=== PATIENT | female | born 1935 | race Caucasian/White ===

== ENCOUNTER 2017-02-14 13:39 | Emergency (ER) | payer MEDICARE, MEDICAID ==
[2017-02-14 13:46] VITALS: BP 154/71
[2017-02-14 14:36] LABS: Urine Bacteria 1+ (Absent); Urine Bilirubin Negative (Negative); Urine Glucose Negative (Negative); Urine Nitrite Negative (Negative)
[2017-02-14] MEDS ORDERED: Sulfamethox/Trimethoprim DS 800/160* TAB PO ONE (14:43)
[2017-02-14] MEDS ORDERED: Phenazopyridine TAB* 100 MG PO ONE (14:44)
--- NOTE | 2017-02-14 15:37 | ED ---
GI/ HPI - HPI Summary HPI Summary: Patient presents to the ED with urgency, frequency, burning upon urination. Dark colored, cloudy urine. Denies flank pain. Denies diaphoresis and chills. Denies known fever. No abnormal vaginal discharge reported. Otherwise healthy. Denies other pain or symptoms. Takes no medications. Last UTI over 2 years ago. PMHX non-contributory. Denies allergies. - History of Current Complaint Chief Complaint: EDUrogenitalProblems Time Seen by Provider: 02/14/17 13:46 Stated Complaint: UTI Hx Obtained From: Patient Onset/Duration: Started Hours Ago Timing: Constant Severity: Moderate Pain Intensity: 0 Associated Signs and Symptoms: Positive: UTI Symptoms - Additional Pertinent History Primary Care Physician: SHARA - Allergy/Home Medications Allergies/Adverse Reactions: Allergies Allergy/AdvReac Type Severity Reaction Status Date / Time Docusate [From Colace] Allergy Itching Verified 02/14/17 14:10 PMH/Surg Hx/FS Hx/Imm Hx Previously Healthy: Yes Endocrine/Hematology History: Denies: Hx Anticoagulant Therapy, Hx Diabetes, Other Endocrine/Hematological Disorders Cardiovascular History: Reports: Other Cardiovascular Problems/Disorders - hx tachycardia Denies: Hx Angina, Hx Coronary Artery Disease, Hx Hypercholesterolemia, Hx Hypertension - H/O TACHYCARDIA- NOT FOR SEVERAL YEARS, Hx Myocardial Infarction , Hx Pacemaker/ICD, Hx Valvular Heart Disease Respiratory History: Denies: Hx Asthma, Hx Chronic Obstructive Pulmonary Disease (COPD), Other Respiratory Problems/Disorders GI History: Denies: Other GI Disorders History: Denies: Hx Renal Disease, Other Problems/Disorders Musculoskeletal History: Reports: Hx Arthritis - arms, knees, Hx Orthopedic Injury - PELVIS & LEFT FOOT FRACTURE Denies: Other Musculoskeletal History Sensory History: Reports: Hx Cataracts, Hx Contacts or Glasses, Hx Vision Problem, Hx Hearing Problem Denies: Hx Hearing Aid, Other Sensory Impairments Opthamlomology History: Reports: Hx Cataracts, Hx Contacts or Glasses, Hx Vision Problem Denies: Other Sensory Impairments Neurological History: Reports: Hx Migraine, Other Neuro Impairments/Disorders - HEADACHES, DEPRESSION Psychiatric History: Reports: Hx Depression - REMOTE HISTORY Denies: Hx Panic Disorder, Other Psychiatric Issues/Disorders - Cancer History Cancer Type, 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 Oophorectomy 1962;. Hysterectomy IN [place];. Appendectomy IN [place];. Veins stripping 1972;. Rt CHEEK - CARCINOMA REMOVED. CATARACT Hx Anesthesia Reactions: No - Immunization History Date of Tetanus Vaccine: unsure Date of Influenza Vaccine: 2012 Hx Pertussis Vaccination: No Immunizations Up to Date: Unable to Obtain/Confirm Infectious Disease History: No Infectious Disease History: Denies: Hx Shingles, Hx Tuberculosis, Traveled Outside the [place] in Last 30 Days - Family History Known Family History: Positive: Cardiac Disease - Social History Occupation: Retired Lives: With Family Alcohol Use: None Hx Substance Use: No Substance Use Type: Reports: None Hx Tobacco Use: No Smoking Status (MU): Never Smoked Tobacco Review of Systems Constitutional: Negative Negative: Fever, Chills, Fatigue Eyes: Negative Cardiovascular: Negative Respiratory: Negative Positive: burning, dysuria, frequency, pain, urgency Musculoskeletal: Negative Skin: Negative Neurological: Negative All Other Systems Reviewed And Are Negative: Yes Physical Exam Triage Information Reviewed: Yes Vital Signs On Initial Exam: Initial Vitals Temp Pulse Resp BP Pulse Ox 98.0 F 71 15 154/71 99 02/14/17 13:40 02/14/17 13:40 02/14/17 13:40 02/14/17 13:40 02/14/17 13:40 Vital Signs Reviewed: Yes Appearance: Positive: Well-Appearing, Well-Nourished Skin: Positive: Warm, Skin Color Reflects Adequate Perfusion Head/Face: Positive: Normal Head/Face Inspection Eyes: Positive: Normal, EOMI Neck: Positive: Supple, Nontender, No Lymphadenopathy Respiratory/Lung Sounds: Positive: Clear to Auscultation, Breath Sounds Present Cardiovascular: Positive: Normal, RRR, Pulses are Symmetrical in both Upper and Lower Extremities Musculoskeletal: Positive: Strength/ROM Intact Neurological: Positive: Disoriented, Speech Normal AVPU Assessment: Alert - [place] Coma Scale Coma Scale Total: 15 Diagnostics - Vital Signs Vital Signs Temp Pulse Resp BP Pulse Ox 02/14/17 15:04 69 16 02/14/17 13:40 98.0 F 71 15 154/71 99 - Laboratory Lab Results: Lab Results 02/14/17 Range/Units 14:06 Urine Color Yellow Urine Appearance Cloudy Urine pH 7.0 (5-9) Ur Specific [place] 1.005 L (1.010-1.030) Urine Protein Negative (Negative) Urine Ketones Negative (Negative) Urine Blood 2+ H (Negative) Urine Nitrate Negative (Negative) Urine Bilirubin Negative (Negative) Urine Urobilinogen Negative (Negative) Ur Leukocyte Esterase 3+ H (Negative) Urine WBC (Auto) 3+(>20/hpf) H (Absent) Urine RBC (Auto) Trace(0-2/hpf) (Absent) Ur Squamous Epith Cells Present H (Absent) Urine Bacteria 1+ H (Absent) Urine Glucose Negative (Negative) Lab Statement: Any lab studies that have been ordered have been reviewed, and results considered in the medical decision making process. GIGU Course/Dx - Course Course Of Treatment: UA performed. WBC and leuks seen. Patient experiencing urgency, frequency and pain on urination. Dark urine noted. No abnormal vaginal discharge or bleeding. No CVA tenderness bilaterally. No previous UTI within last 6 months and no recent Augmentin use. Will treat for uncomplicated UTI and await sensitivities of urine culture. Will call if abx not sensitive to medication. Pyridium given for comfort. Return precautions and follow up with PCP. Given 1 dose bactrim in the ED. 9 tabs rx. - Diagnoses Differential Diagnoses - Female: Urinary Tract Infection, Ureteral Calculi Provider Diagnoses: UTI (urinary tract infection) Discharge - Discharge Plan Condition: Stable Disposition: HOME Prescriptions: Phenazopyridine TAB* [Pyridium 100 mg TAB*] 100 mg PO TID #12 tab Sulfamethox/Trimethoprim DS* [Bactrim DS 800/160 TAB*] 1 tab PO BID #9 tab MDD 2 Patient Education Materials: Urinary Tract Infection in Women (ED) Referrals: Warner Lyon MD [Primary Care Provider] - Additional Instructions: Dx. Urinary Tract Infection Drink plenty of fluids. Supplement with cranberry or altamirano juice. You may also take an over the counter cranberry supplement. If you have any questions about this, you may ask your pharmacist. If your symptoms have not improved in 1-2 days, if you develop fever, sweats or chills, please go to your emergency room, or call your PCP. Antibiotics were prescribed to you. Please take as directed. Supplement with over the counter probiotics on the opposite schedule of your antibiotic to prevent secondary infections. Do not take together as they may counteract each other. Pyridium: This medication is used to treat pain, burning, increased urination, and increased urge to urinate. These symptoms are usually caused by infection, injury, surgery, catheter, or other conditions that irritate the lower urinary tract. Pyridium will treat the symptoms of a urinary tract infection, but this medication does not treat the actual infection. Take the antibiotic that your doctor prescribes to treat your infection. Pyridium will most likely darken the color of your urine to an orange or red color. This is a normal effect and is not cause for alarm unless you have other symptoms such as pale or yellowed skin, fever, stomach pain, nausea, and vomiting. Darkened urine may also cause stains to your underwear, which may or may not be removed by laundering. It can also permanently stain soft contact lenses, and you should not wear them while taking this medicine.
--- NOTE | 2017-02-16 09:00 | PN ---
Progress Note - Progress Note Date of Service: 02/14/17 Note: patient diagnosed and treated for UTI. preliminary urine culture results show >100,000 of e. coli. placed on bactrim at d/c. should have appropriate coverage. no further action required at this time. will wait for final sensitivity results.
== END 2017-02-14 15:06 | disposition home or self-care (01) ==
LOC: ED 13:39
DX: N39.0 Urinary tract infection, site not specified (principal); R30.0 Dysuria
CPT/HCPCS: 81003; 81015; 87077; 87086; 87186; 99282; A9270-GY

== ENCOUNTER 2018-10-28 11:24 | Emergency (ER) | payer MEDICARE, MEDICAID ==
[2018-10-28] MEDS ORDERED: Acetaminophen TAB* 325 MG PO ONE (11:35)
--- NOTE | 2018-10-28 11:35 | ED ---
Upper Extremity Pain - HPI Summary HPI Summary: Patient is an 83-year-old female who presents to the ED with right shoulder pain after a fall this morning. Fall was mechanical. Patient states she was walking on the sidewalk when she tripped, falling onto her right shoulder and right humerus. She is endorsing pain over the right shoulder, slight pain over the right humerus without pain to the forearm, wrist or hand. She denies any swelling, ecchymosis or other signs of trauma. She has not attempted to move about the shoulder due to pain. She has not taken any medication prior to arrival and is requesting Tylenol on arrival. She has never injured the right shoulder in the past. Denies hitting her head or LOC. Denies any other symptoms at this time. Pain is currently rated a 5/10, only with movement and better with rest. - History of Current Complaint Stated Complaint: R SHOULDER INJURY/FALL PER EMS Time Seen by Provider: 10/28/18 11:27 Hx Obtained From: Patient Onset/Duration: Started Hours Ago Timing: Constant Severity Initially: Moderate Severity Currently: Moderate Pain Location: Shoulder Character: Aching Aggravating Factor(s): Movement, Lifting, Flexion Alleviating Factor(s): Rest, Ice Associated Signs & Symptoms: Negative: Swelling, Redness, Bruising Related History: Dominant Hand Right - Risk Factors Non-Orthopedic Risk Factor: Negative DVT Risk Factors: Negative Septic Arthritis Risk Factor: Negative Compartment Syndrome Risk Factors: Pain - Allergies/Home Medications Allergies/Adverse Reactions: Allergies Allergy/AdvReac Type Severity Reaction Status Date / Time No Known Allergies Allergy Verified 10/28/18 11:41 PMH/Surg Hx/FS Hx/Imm Hx Previously Healthy: Yes Endocrine/Hematology History: Denies: Hx Anticoagulant Therapy, Hx Diabetes, Other Endocrine/Hematological Disorders Cardiovascular History: Reports: Other Cardiovascular Problems/Disorders - hx tachycardia Denies: Hx Angina, Hx Coronary Artery Disease, Hx Hypercholesterolemia, Hx Hypertension - H/O TACHYCARDIA- NOT FOR SEVERAL YEARS, Hx Myocardial Infarction , Hx Pacemaker/ICD, Hx Valvular Heart Disease Respiratory History: Denies: Hx Asthma, Hx Chronic Obstructive Pulmonary Disease (COPD), Other Respiratory Problems/Disorders GI History: Denies: Other GI Disorders History: Denies: Hx Renal Disease, Other Problems/Disorders Musculoskeletal History: Reports: Hx Arthritis - arms, knees, Hx Orthopedic Injury - PELVIS & LEFT FOOT FRACTURE Denies: Other Musculoskeletal History Sensory History: Reports: Hx Cataracts, Hx Contacts or Glasses, Hx Vision Problem Denies: Other Sensory Impairments Opthamlomology History: Reports: Hx Cataracts, Hx Contacts or Glasses, Hx Vision Problem Denies: Other Sensory Impairments Neurological History: Reports: Hx Migraine, Other Neuro Impairments/Disorders - HEADACHES, DEPRESSION Psychiatric History: Reports: Hx Depression - REMOTE HISTORY Denies: Hx Panic Disorder, Other Psychiatric Issues/Disorders - Cancer History Cancer Type, 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 Oophorectomy 1962;. Hysterectomy IN [facility];. [place] ;. Veins stripping 1972;. Rt CHEEK - CARCINOMA REMOVED. CATARACT Hx Anesthesia Reactions: No - Immunization History Date of Tetanus Vaccine: unsure Date of Influenza Vaccine: 2012 Hx Pertussis Vaccination: No Immunizations Up to Date: Yes Infectious Disease History: Denies: Hx Shingles, Hx Tuberculosis - Family History Known Family History: Positive: Cardiac Disease - Social History Occupation: Unemployed Lives: With Family Alcohol Use: None Hx Substance Use: No Substance Use Type: Reports: None Hx Tobacco Use: No Smoking Status (MU): Never Smoked Tobacco Review of Systems Constitutional: Negative Negative: Fever, Chills, Fatigue, Skin Diaphoresis Negative: Palpitations, Chest Pain Negative: Shortness Of Breath, Cough Genitourinary: Negative Positive: no symptoms reported, see HPI Positive: Arthralgia - right shoulder Skin: Negative Neurological: Negative All Other Systems Reviewed And Are Negative: Yes Physical Exam Triage Information Reviewed: Yes Vital Signs Reviewed: Yes Appearance: Positive: Well-Appearing, Well-Nourished Skin: Positive: Warm, Skin Color Reflects Adequate Perfusion Head/Face: Positive: Normal Head/Face Inspection Eyes: Positive: EOMI, Conjunctiva Clear Neck: Positive: Supple, No Lymphadenopathy Respiratory/Lung Sounds: Positive: Clear to Auscultation, Breath Sounds Present Cardiovascular: Positive: RRR, Pulses are Symmetrical in both Upper and Lower Extremities Musculoskeletal: Positive: Pain @ - right shoulder pain Neurological: Positive: Speech Normal Psychiatric: Positive: Normal, Affect/Mood Appropriate AVPU Assessment: Alert Course/Dx - Course Course Of Treatment: During the course of treatment, the patient is evaluated for right shoulder pain following a fall. She denies any other pain other than the shoulder. Pain is radiating down from the shoulder into the forearm and hand. She is unable to flex and extend, unable to abduct or abduct at the shoulder joint. She denies any other pain or symptoms from the fall. Denies hitting her head or LOC. X-ray obtained which shows a humeral neck fracture. She is given a sling. Given tramadol as prescription. Encouraged Tylenol and ibuprofen. She will follow-up with orthopedics. - Diagnoses Differential Diagnosis/HQI/PQRI: Positive: Fracture (Open), Fracture (Closed), Strain, Sprain Provider Diagnoses: Right shoulder pain Discharge - Sign-Out/Discharge Documenting (check all that apply): Patient Departure Patient Received Moderate/Deep Sedation with Procedure: No - Discharge Plan Condition: Stable Disposition: HOME Prescriptions: traMADol TAB* [Ultram*] 50 mg PO Q8H PRN #12 tab MDD 3 PRN Reason: Pain Patient Education Materials: Arm Fracture in Adults (ED) Referrals: Warner Lyon MD [Primary Care Provider] - Arlene Butt MD [Medical Doctor] - Additional Instructions: Please follow up with Dr. Butt Call to make an appt this afternoon for next week Keep the arm in the sling for comfort Tylenol 650mg three times daily as needed - Billing Disposition and Condition Condition: STABLE Disposition: Home
[2018-10-28 13:51] VITALS: BP 146/71
== END 2018-10-29 01:40 | disposition home or self-care (01) ==
LOC: ED 11:24
DX: S42.211A Unspecified displaced fracture of surgical neck of right humerus, initial encounter for closed fracture (principal); W01.0XXA Fall on same level from slipping, tripping and stumbling without subsequent striking against object, initial encounter; Y92.480 Sidewalk as the place of occurrence of the external cause
CPT/HCPCS: 71045; 99282; A9270-GY

== ENCOUNTER 2018-10-28 23:34 | Emergency (ER) | payer MEDICARE, MEDICAID ==
--- NOTE | 2018-10-29 00:24 | ED ---
Upper Extremity Pain - HPI Summary HPI Summary: 83 yo female presents to [facility] ED via EMS with complaints of shivering and right shoulder pain. [facility] found to have a right humerus fracture. She was placed in a sling and given tramadol for discomfort and discharged. Since that time, her pain has been under control, but she states she cannot get comfortable in bed and feels that she is shaking and "teeth chattering". She thought her fingers were going numb with the sling in the usual position, therefore she loosened it so her arm is in about 25deg of flexion at the elbow - good relief with this. She denies new injury, headache , dizziness, SOB, chest pain, fever. She last took tramadol and tylenol at 2130 - History of Current Complaint Chief Complaint: EDExtremityUpper Stated Complaint: SHAKING/ARM PAIN PER EMS Time Seen by Provider: 10/28/18 23:56 Hx Obtained From: Patient Severity Initially: Moderate Severity Currently: Moderate Pain Location: Arm - Allergies/Home Medications Allergies/Adverse Reactions: Allergies Allergy/AdvReac Type Severity Reaction Status Date / Time No Known Allergies Allergy Verified 10/28/18 11:41 PMH/Surg Hx/FS Hx/Imm Hx Endocrine/Hematology History: Denies: Hx Anticoagulant Therapy, Hx Diabetes, Other Endocrine/Hematological Disorders Cardiovascular History: Reports: Other Cardiovascular Problems/Disorders - hx tachycardia Denies: Hx Angina, Hx Coronary Artery Disease, Hx Hypercholesterolemia, Hx Hypertension - H/O TACHYCARDIA- NOT FOR SEVERAL YEARS, Hx Myocardial Infarction , Hx Pacemaker/ICD, Hx Valvular Heart Disease Respiratory History: Denies: Hx Asthma, Hx Chronic Obstructive Pulmonary Disease (COPD), Other Respiratory Problems/Disorders GI History: Denies: Other GI Disorders History: Denies: Hx Renal Disease, Other Problems/Disorders Musculoskeletal History: Reports: Hx Arthritis - arms, knees, Hx Orthopedic Injury - PELVIS & LEFT FOOT FRACTURE Denies: Other Musculoskeletal History Sensory History: Reports: Hx Cataracts, Hx Contacts or Glasses, Hx Vision Problem Denies: Other Sensory Impairments Opthamlomology History: Reports: Hx Cataracts, Hx Contacts or Glasses, Hx Vision Problem Denies: Other Sensory Impairments Neurological History: Reports: Hx Migraine, Other Neuro Impairments/Disorders - HEADACHES, DEPRESSION Psychiatric History: Reports: Hx Depression - REMOTE HISTORY Denies: Hx Panic Disorder, Other Psychiatric Issues/Disorders - Cancer History Cancer Type, 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 Oophorectomy 1962;. Hysterectomy IN [place];. Appendectomy IN [place];. Veins stripping 1972;. Rt CHEEK - CARCINOMA REMOVED. CATARACT Hx Anesthesia Reactions: No - Immunization History Date of Tetanus Vaccine: unsure Date of Influenza Vaccine: 2012 Immunizations Up to Date: Yes Infectious Disease History: No Infectious Disease History: Denies: Hx Shingles, Hx Tuberculosis, Traveled Outside the [place] in Last 30 Days - Family History Known Family History: Positive: Cardiac Disease - Social History Alcohol Use: None Hx Substance Use: No Substance Use Type: Reports: None Hx Tobacco Use: No Smoking Status (MU): Never Smoked Tobacco Review of Systems Constitutional: Negative Eyes: Negative ENT: Negative Cardiovascular: Negative Respiratory: Negative Gastrointestinal: Negative Genitourinary: Negative Musculoskeletal: Other - Right shoulder pain Skin: Negative Neurological: Negative Psychological: Normal All Other Systems Reviewed And Are Negative: Yes Physical Exam - Summary Physical Exam Summary: GENERAL: NAD. WDWN. No pain distress. SKIN: No rashes, sores, or open wounds. HEENT: Head: AT/NC Eyes: PERRLA. EOM intact. Ears: Hearing grossly normal. NECK: Supple. Nontender. No lymphadenopathy. CHEST: CTAB. No r/r/w. No accessory muscle use. Breathing comfortably and in no distress. CV: RRR. Without m/r/g. Pulses intact. Brisk cap refill. ABDOMEN: Soft. NTTP. No distention or guarding. Bowel sounds present MSK: Right shoulder TTP. Refuses to move due to pain NEURO: Alert. Sensations intact C4-T1 b/l PSYCH: Age appropriate behavior. Triage Information Reviewed: Yes Vital Signs On Initial Exam: Initial Vitals Temp Pulse Resp BP Pulse Ox 98.1 F 66 16 112/68 96 10/28/18 23:43 10/28/18 23:43 10/28/18 23:43 10/28/18 23:43 10/28/18 23:43 Vital Signs Reviewed: Yes Diagnostics - Vital Signs Vital Signs Temp Pulse Resp BP Pulse Ox 10/28/18 23:43 98.1 F 66 16 112/68 96 - Laboratory Lab Statement: Any lab studies that have been ordered have been reviewed, and results considered in the medical decision making process. Course/Dx - Course Course Of Treatment: CXR: wet read negative for acute process. Reassured the pt that her shoulder will improve and she should take tylenol as directed and the tramadol only if she needs to for breakthrough pain. F/u with Orthopedics as early next week. Nursing contacted her son and he will come pick her up this evening and bring her home. - Diagnoses Provider Diagnoses: Right humeral fracture Discharge - Sign-Out/Discharge Documenting (check all that apply): Patient Departure Patient Received Moderate/Deep Sedation with Procedure: No - Discharge Plan Condition: Stable Disposition: HOME Patient Education Materials: Proximal Humerus Fracture (ED) Referrals: Warner Lyon MD [Primary Care Provider] - Arlene Butt MD [Medical Doctor] - 5 Days Additional Instructions: If you develop a fever, shortness of breath, chest pain, new or worsening symptoms - please call your PCP or go to the ED immediately. Use the sling as much as possible for comfort Take tylenol as directed for discomfort and the tramadol as directed if needed for breakthrough pain Please follow up with Orthopedics at the number below in 3-5 days for a recheck of your shoulder - Billing Disposition and Condition Condition: STABLE Disposition: Home
[2018-10-29 01:42] VITALS: BP 115/62
== END 2018-10-29 01:40 | disposition home or self-care (01) ==
LOC: ED 23:34
DX: S42.301A Unspecified fracture of shaft of humerus, right arm, initial encounter for closed fracture (principal); W19.XXXA Unspecified fall, initial encounter; Y92.9 Unspecified place or not applicable; R25.1 Tremor, unspecified
CPT/HCPCS: 71045; 99282

== ENCOUNTER 2018-10-30 08:26 | Observation (INO) | payer MEDICARE, MEDICAID ==
--- NOTE | 2018-10-30 08:34 | ED ---
Altered Mental Status - HPI Summary HPI Summary: This patient is an 83 year old female brought in by EMS presenting to [facility] with a chief complaint of altered mental status. She states she has not felt well and that she has not had an appetite. The patient recently had a fall. The patient could not find her phone to call her son and pressed her life alert. The patient has a fracture in her right arm from 2 days ago and is wearing a splint. - History Of Current Complaint Chief Complaint: EDAltMentalStatus Stated Complaint: ALTERED MENTAL STATUS PER EMS Time Seen by Provider: 10/30/18 08:31 Hx Obtained From: Patient Onset/Duration: Still Present Timing: Constant, Lasting Hours Character: Confusion - Allergies/Home Medications Allergies/Adverse Reactions: Allergies Allergy/AdvReac Type Severity Reaction Status Date / Time No Known Allergies Allergy Verified 10/28/18 11:41 PMH/Surg Hx/FS Hx/Imm Hx Endocrine/Hematology History: Denies: Hx Anticoagulant Therapy, Hx Diabetes, Other Endocrine/Hematological Disorders Cardiovascular History: Reports: Other Cardiovascular Problems/Disorders - hx tachycardia Denies: Hx Angina, Hx Coronary Artery Disease, Hx Hypercholesterolemia, Hx Hypertension - H/O TACHYCARDIA- NOT FOR SEVERAL YEARS, Hx Myocardial Infarction , Hx Pacemaker/ICD, Hx Valvular Heart Disease Respiratory History: Denies: Hx Asthma, Hx Chronic Obstructive Pulmonary Disease (COPD), Other Respiratory Problems/Disorders GI History: Denies: Other GI Disorders History: Denies: Hx Renal Disease, Other Problems/Disorders Musculoskeletal History: Reports: Hx Arthritis - arms, knees, Hx Orthopedic Injury - PELVIS & LEFT FOOT FRACTURE Denies: Other Musculoskeletal History Sensory History: Reports: Hx Cataracts, Hx Contacts or Glasses, Hx Vision Problem Denies: Other Sensory Impairments Opthamlomology History: Reports: Hx Cataracts, Hx Contacts or Glasses, Hx Vision Problem Denies: Other Sensory Impairments Neurological History: Reports: Hx Migraine, Other Neuro Impairments/Disorders - HEADACHES, DEPRESSION Psychiatric History: Reports: Hx Depression - REMOTE HISTORY Denies: Hx Panic Disorder, Other Psychiatric Issues/Disorders - Cancer History Cancer Type, 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 Oophorectomy 1962;. Hysterectomy IN [place];. Appendectomy IN [place];. Veins stripping 1972;. Rt CHEEK - CARCINOMA REMOVED. CATARACT Hx Anesthesia Reactions: No - Immunization History Date of Tetanus Vaccine: unsure Date of Influenza Vaccine: 2012 Infectious Disease History: No Infectious Disease History: Denies: Hx Shingles, Hx Tuberculosis, Traveled Outside the [place] in Last 30 Days - Family History Known Family History: Positive: Cardiac Disease - Social History Alcohol Use: None Hx Substance Use: No Substance Use Type: Reports: None Hx Tobacco Use: No Smoking Status (MU): Never Smoked Tobacco Review of Systems Positive: Other - Loss of appetite Neurological: Other - Altered mental status All Other Systems Reviewed And Are Negative: Yes Physical Exam - Summary Physical Exam Summary: Appearance: Well appearing, no pain distress. Skin: warm, dry, reflects adequate perfusion. Abrasion on right knee. Head/face: normal Eyes: EOMI, Conjuctiva pale. ENT: normal Neck: supple, non-tender Respiratory: CTA, breath sounds present Cardiovascular: RRR, pulses symmetrical Abdomen: non-tender, soft Musculoskeletal: normal, strength/ROM intact. Sling over the right arm. Tenderness over the right humerus. Neuro: Alert and confused. Triage Information Reviewed: Yes Vital Signs On Initial Exam: Initial Vitals Temp Pulse Resp BP Pulse Ox 97.6 F 80 14 141/77 95 10/30/18 08:27 10/30/18 08:27 10/30/18 08:27 10/30/18 08:27 10/30/18 08:27 Vital Signs Reviewed: Yes Diagnostics - Vital Signs Vital Signs Temp Pulse Resp BP Pulse Ox 10/30/18 08:27 97.6 F 80 14 141/77 95 - Laboratory Result Diagrams: 10/30/18 09:09 10/30/18 09:09 Lab Statement: Any lab studies that have been ordered have been reviewed, and results considered in the medical decision making process. - Radiology CXR Radiology Interpretation Completed By: Radiologist Summary of Radiographic Findings: No radiographic evidence for acute cardiopulmonary abnormality on this portable chest x-ray. ED Provider has reviewed this report. - CT Brain CT Interpretation Completed By: Radiologist Summary of CT Findings: Age appropriate chronic findings as described above without CT apparent acute intracranial abnormality. ED Provider has reviewed this report. - EKG 0850 Cardiac Rate: NL - 67 BPM EKG Rhythm: Sinus Rhythm Summary of EKG Findings: RBBB Altered Mental Statu Course/Dx - Course Course Of Treatment: This patient is an 83 year old female brought in by EMS presenting to [facility] with a chief complaint of altered mental status. Bloodwork/ UA were remarkable for hyponatremia and hypomagnesemia. CXR and Brain CT revealed no acute findings. Dr. Mcgraw, Hospitalist, accepted the patient for admission. This plan was discussed with the patient and she was agreeable with this plan. - Diagnoses Differential Diagnosis/HQI/PQRI: Metabolic Disorder, Other - head injury weakness Provider Diagnoses: Hyponatremia, Hypomagnesemia, Dementia Discharge - Sign-Out/Discharge Documenting (check all that apply): Patient Departure - Admission Patient Received Moderate/Deep Sedation with Procedure: No - Discharge Plan Condition: Stable Disposition: ADMITTED TO [facility] Referrals: Warner Lyon MD [Primary Care Provider] - - Billing Disposition and Condition Condition: STABLE Disposition: Admitted to [facility] - Attestation Statements Document Initiated by Scribe: Yes Documenting Scribe: Victor Manuel Rosario Provider For Whom Scribe is Documenting (Include Credential): Carlo Faith MD Scribe Attestation: Victor Manuel Hassan scribed for Carlo Faith MD on 10/30/18 at 1134. Scribe Documentation Reviewed: Yes Provider Attestation: The documentation as recorded by the Victor Manuel madrid accurately reflects the service I personally performed and the decisions made by Carlo chandra MD Status of Scribe Document: Viewed
[2018-10-30] MEDS: NS 0.9% 1000 ML** 1,000 ML IV SCH ×2 (08:53→13:21)
[2018-10-30 09:05] LABS: Urine Appearance Clear; Urine Bacteria Absent (Absent); Urine Bilirubin Negative (Negative); Urine Blood 2+ (Negative); Urine Color Yellow; Urine Glucose Negative (Negative); Urine Ketones 1+ (Negative); Urine Nitrite Negative (Negative); Urine Protein Negative (Negative); Urine Red Blood Cell 2+(6-10/hpf) (Absent); Urine Specific Gravity 1.006 (1.010-1.030); Urine Urobilinogen Negative (Negative); Urine White Blood Cell Absent (Absent)
[2018-10-30] MEDS ORDERED: Acetaminophen TAB* 325 MG PO ONE (09:16)
[2018-10-30 09:17] LABS: ABS Eosinophils 0.1 10^3/ul (0-0.6); ABS Lymphocytes 0.3 10^3/ul (1.0-4.8); ABS Monocytes 0.6 10^3/ul (0-0.8); ABS Neutrophils 4.7 10^3/ul (1.5-7.7); Eosinophil % 1.1 %; Hematocrit 29 % (35-47); Hemoglobin 10.2 g/dL (12.0-16.0); Mean Corpuscular HGB Conc 35 g/dL (31-36); Mean Corpuscular Hemoglobin 33 pg (27-31); Mean Corpuscular Volume 94 fL (80-97); Mean Platelet Volume 10.5 fL (7.4-10.4); Platelet Count 114 10^3/uL (150-450); Red Blood Count 3.13 10^6 /uL (3.70-4.87); Red Cell Distribution Width 14 % (10-15); White Blood Count 5.7 10^3/uL (3.5-10.8)
[2018-10-30 09:23] LABS: INR 1.09 (0.82-1.09)
[2018-10-30 09:32] LABS: ALT 16 U/L (7-52); AST 31 U/L (13-39); Albumin 3.5 g/dL (3.2-5.2); Albumin/Globulin Ratio 1.5 (1-3); Alkaline Phosphatase 78 U/L (34-104); Anion Gap 7 mmol/L (2-11); BUN/Creatinine Ratio 17.8 (8-20); Blood Urea Nitrogen 8 mg/dL (6-24); CO2 Carbon Dioxide 21 mmol/L (22-32); Calcium 7.9 mg/dL (8.6-10.3); Chloride 92 mmol/L (101-111); Creatine Kinase 241 U/L (10-223); EGFR African American 160.6 (>60); EGFR Non-African American 132.7 (>60); Globulin 2.4 g/dL (2-4); Glucose 113 mg/dL (70-100); Magnesium 1.6 mg/dL (1.9-2.7); Potassium 3.5 mmol/L (3.5-5.0); Sodium 120 mmol/L (135-145); Total Protein 5.9 g/dL (6.4-8.9)
[2018-10-30 09:46] LABS: Alcohol < 10 mg/dL (<10)
[2018-10-30] MEDS ORDERED: Magnesium Sulfate 1 GM IV* 1 GM/100 ML BAG IV ONE (09:49)
[2018-10-30 10:01] LABS: TSH (Thyroid Stimulating Horm) 4.52 mcIU/mL (0.34-5.60)
[2018-10-30] MEDS ORDERED: Potassium Chloride* LIQUID 20 MEQ/15 ML UDC PO ONE (11:16)
[2018-10-30] MEDS ORDERED: Magnesium Sulfate 2 GM IV* 2 GM/50 ML BAG IVPB ONE (11:16)
[2018-10-30] MEDS ORDERED: Ondansetron INJ* 2 MG/ML VIAL IV PRN (11:32)
[2018-10-30] MEDS ORDERED: Acetaminophen TAB* 325 MG PO PRN (11:36)
[2018-10-30] MEDS ORDERED: traMADol TAB* 50 MG PO PRN (11:36)
[2018-10-30 11:42] LABS: Triglycerides 46 mg/dL
[2018-10-30 11:52] LABS: Urine Creatinine Concentration 38.24 mg/dL
[2018-10-30 11:54] LABS: Urine Benzodiazepine Screen None Detected (None Detect); Urine Opiates Screen None Detected (None Detect)
[2018-10-30] MEDS: Acetaminophen TAB* 325 MG PO PRN (13:20)
[2018-10-30] MEDS ORDERED: Heparin VIAL(*) 5000 UNITS/ML VIAL (FIVE THOUSAND) SUBCUT SCH (14:00)
[2018-10-30 15:00] LABS: BUN/Creatinine Ratio 12.2 (8-20); Calcium 8.3 mg/dL (8.6-10.3); EGFR African American 145.6 (>60); EGFR Non-African American 120.3 (>60); Potassium 3.9 mmol/L (3.5-5.0)
--- NOTE | 2018-10-30 15:07 | HP ---
CC: Dr. Warner Lyon * ADMISSION HISTORY AND PHYSICAL: DATE OF ADMISSION: 10/30/18 PRIMARY CARE PROVIDER: Dr. Warner Lyon. MY ATTENDING WHILE IN THE HOSPITAL: Dr. Marlen Mcgraw.* (DICTATED BY ZHANG CRONIN) CHIEF COMPLAINT: Altered mental status. HISTORY OF PRESENT ILLNESS: Ms. Leon is an 83-year-old female with past medical history significant for osteoporosis, paroxysmal atrial fibrillation and migraines, but he is generally very healthy and living independently who, two days ago, had what was reported to be a mechanical fall for which she came into the emergency department with shoulder pain. She was entirely oriented at her baseline at that time. She was splinted in the emergency department and sent home with a tramadol prescription and has followup with Orthopedics outpatient. The patient came back again to the emergency department with persistent pain and was again discharged. The patient was again oriented at that time. The patient during neither of these had any lab work done. The patient was seen by her son on 10/29/18 and he states that she was "kind of out of it," not answering questions, but was not markedly off her baseline, just seemed drowsy. The patient then this morning came into the emergency department because she was confused, she pressed her life alert button. She states she last took the tramadol night before. She was drowsy, but was having word-finding difficulty, complaining of pain in her shoulder with movement. The patient in the emergency department was examined. The patient does not know her son's name. The patient does not know where she is. The patient does not remember much about the last 2 days. The patient does not remember her primary care doctor's name. The patient complains only of pain in her chest and understands that she is very confused. The patient does not remember anything about her past medical history. The patient has a large scar on her abdomen. When asked about this, she denies knowing where it came from and denies ever having any surgeries. The patient feels somewhat nauseated. The patient states that she feels like she has been vomiting, but does not know that she has. The patient remembers falling. She does not remember the circumstances of her fall. The patient denies any chest pain, shortness of breath, any pain with urination. The patient cannot quantify the amount that she has been urinating. The patient denies diarrhea, but did not know what diarrhea was until it was explained to her and that her comprehension was still unclear. In the emergency department, the patient was found to have a sodium of 120 and due to concern for altered mental status, we were asked to evaluate the patient for admission to the hospital. PAST MEDICAL HISTORY: Paroxysmal atrial fibrillation, vertigo, osteoporosis, migraines. PAST SURGICAL HISTORY: Hysterectomy per son. MEDICATIONS: 1. Multivitamin. 2. Tylenol 975 mg p.o. daily. 3. Fish oil 1000 mg p.o. daily. 4. Tramadol 50 mg p.o. q.8 hours as needed. ALLERGIES: DOCUSATE. FAMILY HISTORY: The patient's father of heart failure. This was obtained from the records. No other family history is available at this time. SOCIAL HISTORY: The patient per the records has never smoked, drank or used illicit drugs. The patient has 2 children. Her surrogate decision maker will be her son, Negro. REVIEW OF SYSTEMS: A 14-point review of systems was attempted to be performed, but the patient was unable to cooperate at this time. PHYSICAL EXAMINATION GENERAL: The patient is an 83-year-old female, who appears stated age and sitting comfortably in the bed, in no acute distress. VITAL SIGNS: Temperature 97.6, pulse rate 69, respiratory rate 14, oxygen saturation 96% on room air, blood pressure 134/83. HEENT: Head: Normocephalic, atraumatic. Sclerae anicteric. No conjunctival injection. Nasal mucosa moist. Oral mucosa moist. No pharyngeal erythema, discharge, or exudate. NECK: Supple, nontender. No lymphadenopathy. No carotid bruits auscultated. No JVD. RESPIRATORY: Clear to auscultation bilaterally. No wheezes, rales, or rhonchi. Good air exchange bilaterally. CARDIAC: Regular rate and rhythm. No clicks, murmurs, gallops, or rubs. Pulses are 2+ in the bilateral dorsalis pedis, posterior tibialis, and radial areas. ABDOMEN: Soft, nontender, nondistended. Bowel sounds present and normoactive in all 4 quadrants. No hepatosplenomegaly. No abdominal bruits auscultated. No hepatojugular reflux. GENITOURINARY: No suprapubic or CVA tenderness. NEURO: Cranial nerves II through XII intact. Alert, oriented only to self, very poor memory. No focal deficits to limited exam. Sensation intact distally to shoulder fracture. PSYCHIATRIC: Confused, but otherwise pleasant and cooperative. SKIN: Clean, dry, and intact. No rash. DIAGNOSTIC STUDIES/LAB DATA: White blood cell count 5.7, hemoglobin 10.2, platelet count 114. INR 1.09. Sodium 120, potassium 3.5, chloride 92, carbon dioxide 21, anion gap 7, BUN 8, creatinine 0.45, glucose 113, lactic acid 0.7, calcium 7.9, magnesium 1.6. Bilirubin 1.2, AST 31, ALT 16, alkaline phosphatase 78. Creatine kinase 241, troponin I 0.00. Protein 5.9, albumin 3.5 , globulin 2.4. Triglycerides 46. TSH 4.52. Urine shows low specific gravity, positive ketones, positive blood. Urine toxicology is negative. Urine creatinine concentration 3.24, urine sodium concentration 35. Urine osmolality pending. Studies: Brain CT read as age appropriate chronic findings without apparent acute intracranial abnormality. EKG shows right bundle branch block. No ST segment elevation or depression. Compared to previous exam, there are no significant changes. Chest x-ray read as no acute cardiopulmonary disease. ASSESSMENT AND PLAN: Impression: Ms. Leon is an 83-year-old female with past medical history significant for osteoporosis, atrial fibrillation and recent humerus fracture, who presents to the emergency department acutely confused with hyponatremia. 1. Altered mental status. The patient's altered mental status is very likely due to her hyponatremia, though other options could be her taking tramadol, though her urine toxicology is negative for opioids. The patient's tramadol use could also be contributing to her syndrome of inappropriate antidiuretic hormone secretion, which could be leading to her hyponatremia. The patient is currently putting out a large volume of dilute urine and this is not consistent with syndrome of inappropriate antidiuretic hormone secretion. The patient does not take any diuretics. The patient is not on any blood pressure medications. The trend of the patient's sodium will be watched. The patient was given fluids in the emergency department. Given concern for syndrome of inappropriate antidiuretic hormone secretion, these will not be continued at this time. The patient does not appear dehydrated on exam nor does the patient appear fluid overloaded. The patient has no kidney failure or known hepatic failure that would be contributing to hypervolemic hyponatremia. The patient's TSH will be checked and cortisol will also be checked, but these are unlikely to be the cause of the patient's syndrome of inappropriate antidiuretic hormone secretion. It is possible the stimulus for this and her ensuing diuresis is due to compensation from the removal of the stimulus. The patient's mental status and sodium will be monitored closely. If the patient, after her sodium returns normal, is still altered then a workup for cerebrovascular disease should be undertaken; however, there is a low index of suspicion for this at this time and the patient is out of the window for any sort of intervention for this nor she does she at high risk for any reason, besides her age and atrial fibrillation. 2. Humeral fracture. The patient had a recent humeral fracture that she is supposed to follow up with Orthopedics for tomorrow. Given the patient's expected length of hospitalization and likely noncompliance with her splint, she will be seen by Orthopedics while in the hospital for possible splint placement or other determination of care. 3. Paroxysmal atrial fibrillation. The patient will be monitored. The patient is unclear how frequently this happens. The patient will have her electrolytes optimized. The patient is not currently in atrial fibrillation. The patient is not on anticoagulation nor should it be started given her anemia and frequent falls. 4. Osteoporosis. At an appropriate time the patient's fracture, osteoporosis treatment should be considered. 5. DVT prophylaxis: The patient will have Lovenox. TIME SPENT: Approximately 60 minutes was spent on the admission of this patient , 30 of which was spent [id number] with the patient obtaining history and physical and discussing treatment plan. This plan was discussed with my attending, Dr. Marlen Mcgraw, and she is in agreement. ZHANG CRONIN [id number]/[facility] #: [id number] DAPHNIE
[2018-10-30] MEDS ORDERED: PROCHLORPERAZINE INJ 5 MG/ML 2 ML VIAL IV ONE (15:40)
[2018-10-30] MEDS: Ibuprofen TAB* 600 MG PO PRN (16:40)
--- NOTE | 2018-10-30 19:13 | CONS ---
CC: PCP, Warner Lyon MD * CONSULTATION REPORT: DATE OF CONSULT: 10/30/18 ATTENDING PHYSICIAN: Arlene Butt MD. CHIEF COMPLAINT: Right shoulder pain. HISTORY OF PRESENT ILLNESS: Briefly, Nivia Leon is an 83-year-old female who presents with confusion. She also has a recent diagnosis of a proximal humerus fracture. This occurred on 10/28/18. She went home and she was still somewhat confused. She has not been eating very well. She has been in a sling, she is having a lot of pain. Her fall was ground level fall outside where she tripped. She also scraped her knees. She states that the shoulder is bothering her quite a bit. She has been compliant with the sling. She denies fevers, chills. She was discharged from the ER. She then presented again last evening. She came back to the ER today with altered mental status. She was not feeling well. She has not had an appetite. She sustained the injury on 10/28/18 and then presented again later that night for shivering and right shoulder pain. She was discharged again and then brought back. She presented again today with altered mental status changes and confusion with a low sodium. She was then admitted by the medicine team. PAST MEDICAL HISTORY: 1. History of tachycardia. 2. History of [place]. 3. Pacemaker placement. 4. ICD. 5. History of valvular disease. 6. She does have arthritis. 7. She has history of cataracts. 8. Migraines. 9. She does have headaches and depression. 10. She has had precancerous skin lesion. 11. Vertigo. PAST SURGICAL HISTORY: 1. She has had several D and C's in . 2. Oophorectomy in 1962. 3. Hysterectomy in . 4. Appendectomy in . 5. Vein stripping in 1972. 6. Right cheek carcinoma removed. ALLERGIES: None. FAMILY HISTORY: Cardiac disease. SOCIAL HISTORY: She denies tobacco and alcohol. REVIEW OF SYSTEMS: Somewhat limited due to her confusion, but she does state that she does not have an appetite. She does not feel good. She has fatigue. She is somewhat confused. She states her arm hurts. She also has abrasions about her knee. She denies any other symptoms. PHYSICAL EXAMINATION: Vitals: Temperature 98.1, pulse of 56, respiratory rate 17, O2 saturation 94%, blood pressure 124/63. She is in no acute distress. She is able to walk from the bathroom with assistance. She has a sling on the right shoulder. The skin is intact. She does have some swelling and tenderness. She is nontender about the elbow or wrist. Her hand, she is sensate to light touch about the first dorsal webspace, index, long finger, and small finger. She has 2+ radial pulse. She is able to perform a thumbs-up, okay sign; flex, extend, cross finger her digits. She has abrasions about her knee. EOMI. Chest is clear to auscultation. Heart: Regular rate and rhythm. Abdomen: Soft and nontender. LABORATORY DATA AND DIAGNOSTIC STUDIES: X-rays that were obtained 2 days ago demonstrated minimal displaced proximal humerus surgical neck fracture. We did reorder images for today. White blood cell count of 5.7, hematocrit of 29, platelets of 114. INR 1.09. Sodium is 120, potassium 3.5, chloride 92, carbon dioxide 21, BUN is 8, creatinine 0.45, calcium 7.9, glucose 113. Magnesium 1.6. Lactic acid 0.7. UA is negative. Tox screen is negative; she did not take any pain medication. ASSESSMENT AND PLAN: She has a nondisplaced proximal humerus fracture. She has been admitted for confusion and has hyponatremia. This is being addressed by the medicine team. At this point, I would recommend repeat images of the shoulder. We talked about ice, heat, and antiinflammatories if she needs them. At this point, we will continue to monitor her. I will see her back in the office in 10 to 14 days. We will keep an eye on her while she is here. [id number]/[facility] #: [id number] MTDD
[2018-10-30] MEDS: Enoxaparin(*) 40 MG/0.4 ML SYR SUBCUT SCH (21:27)
[2018-10-31 06:34] LABS: ABS Eosinophils 0.1 10^3/ul (0-0.6); ABS Lymphocytes 0.7 10^3/ul (1.0-4.8); ABS Monocytes 0.8 10^3/ul (0-0.8); Eosinophil % 2.7 %; Hematocrit 30 % (35-47); Hemoglobin 10.6 g/dL (12.0-16.0); Lymphocyte % 15.2 %; Mean Corpuscular HGB Conc 35 g/dL (31-36); Mean Corpuscular Hemoglobin 33 pg (27-31); Mean Corpuscular Volume 94 fL (80-97); Mean Platelet Volume 10.7 fL (7.4-10.4); Nucleated Red Blood Cells % 0.1; Platelet Count 109 10^3/uL (150-450); Red Blood Count 3.18 10^6 /uL (3.70-4.87); Red Cell Distribution Width 14 % (10-15); White Blood Count 4.6 10^3/uL (3.5-10.8)
[2018-10-31 06:59] LABS: BUN/Creatinine Ratio 10.7 (8-20); Calcium 8.2 mg/dL (8.6-10.3); EGFR African American 124.8 (>60); EGFR Non-African American 103.1 (>60); Magnesium 2.2 mg/dL (1.9-2.7); Potassium 3.8 mmol/L (3.5-5.0)
[2018-10-31] MEDS: Acetaminophen TAB* 325 MG PO PRN ×2 (07:10→14:56)
[2018-10-31] MEDS: CMC: OMEGA-3 FATTY ACIDS (NF) 1,000 MG CAP PO SCH ×2 (07:10→07:12)
[2018-10-31] MEDS: Multivitamins/Minerals TAB PO SCH ×2 (07:11)
--- NOTE | 2018-10-31 08:56 | PN ---
Subjective Date of Service: 10/31/18 Interval History: Patient is feeling more lucid today. She recalled that she was staying at home alone without any help after her humeral fracture. She didn't have any meals for a couple of days. She felt very hungry and would like to eat now. She had no nausea or vomitting, she was able to tell time, place and person. In terms of pain, she felt well controlled with current pain med. Objective Active Medications: Acetaminophen (Tylenol Tab*) 650 mg PO Q6H PRN PRN Reason: FEVER/PAIN Last Admin: 10/31/18 07:10 Dose: 650 mg Enoxaparin Sodium (Lovenox(*)) 40 mg SUBCUT Q24H [facility] Last Admin: 10/30/18 21:27 Dose: 40 mg Fish Oil (Fish Oil (Nf)) 1,000 mg PO DAILY [facility] Last Admin: 10/31/18 07:12 Dose: Not Given Ibuprofen (Motrin Tab*) 600 mg PO Q8H PRN PRN Reason: Pain- Moderate Last Admin: 10/30/18 16:40 Dose: 600 mg Multivitamins/Minerals (Theragran/Minerals Tab*) 1 tab PO DAILY [facility] Last Admin: 10/31/18 07:11 Dose: Not Given Ondansetron HCl (Zofran Inj*) 4 mg IV Q6H PRN PRN Reason: NAUSEA Last Admin: 10/30/18 13:20 Dose: 4 mg Vital Signs - 8 hr 10/31/18 03:15 Temperature 98.1 F Pulse Rate 57 Respiratory 18 Rate Blood Pressure 100/46 (mmHg) O2 Sat by Pulse 97 Oximetry Oxygen Devices in Use Now: None Exam: Alert, oriented to time, place and person Able to tell the date and year Generally well, speaking in full sentence, able to recall what happened Heart: normal S1, S2, no murmur Lung: clear Abdomen: soft, non tender MSK: right arm on sling, no tenderness on palpation. LL: no swelling Result Diagrams: 10/31/18 06:12 10/31/18 06:12 Assess/Plan/Problems-Billing Assessment: Ms. Leon is a 83 years old lady with background of [place], valvular disease, ICD, oophrectomy&hysterectomy, appendectomy, and recent nondisplaced humeral fracture , admitted for altered mental status. She was given tramadol after fracture, and stayed alone at home without eating for 2-3 days before coming to ED with confusion. Her electrolyte disturbance (hypoNa, hypoMg) is likely due to her poor oral intake, which was resolving with 1L NS and Mg tab. Her altered mental status was probably due to tramadol as well as her hypoNa. She has been totally back to her normal self today. We need to sort out her care plan and physiotherapy before getting her discharged. - Patient Problems (1) Altered mental status Current Visit: Yes Status: Acute Code(s): R41.82 - ALTERED MENTAL STATUS, UNSPECIFIED SNOMED Code(s): 100811125 Comment: Due to combination effect of tramadol and electrolyte disturbances. Resolved now. (2) Hyponatremia Current Visit: Yes Status: Acute Code(s): E87.1 - HYPO-OSMOLALITY AND HYPONATREMIA SNOMED Code(s): 74555425 Comment: Likely due to poor oral intake. Resolving after giving 1L NS. (3) Hypomagnesemia Current Visit: Yes Status: Acute Code(s): E83.42 - HYPOMAGNESEMIA SNOMED Code(s): 288973016 Comment: Due to poor oral intake, resolving with Mg tab. (4) Humeral fracture Current Visit: Yes Status: Acute Code(s): S42.309A - UNSP FRACTURE OF SHAFT OF HUMERUS, UNSP ARM, INIT SNOMED Code(s): 32309126 Comment: Continue to keep sling for fracture, continue current pain med, monitor symptoms. (5) Valvular heart disease Current Visit: Yes Status: Acute Comment: valvular disease, old [place], on ICD, no change in management for heart disease now. Attestation Documenting Resident: Jenny Huber Supervising Physician: Rhiannon Babin Attestation: This service has been performed in part by a resident under the direction of a teaching physician.I, Rhiannon Babin, performed the service, or was physically present during the critical, or leary portions of the service, furnished by the resident. I participated in the management of the patient.
[2018-10-31] MEDS: Ibuprofen TAB* 600 MG PO PRN ×2 (11:04→21:02)
--- NOTE | 2018-10-31 15:35 | PN ---
Progress Note - Progress Note Date of Service: 10/31/18 SOAP: Subjective: []Pt seen at bedside. She denies any complaints. R shoulder pain well controlled. Objective: []Gen: NAD RUE: Sling in place, ecchymosis of upper arm and axilla. Sensation intact to light touch throughout extremity. Able to flex and extend at elbow, wrist and digits. Capillary refill less than two seconds distally, radial pulse 2+ Assessment: [] R proximal humerus fracture Plan: []NWValeria DOBBINS Sling MU Butt 10-14 days Imaging IMPRESSION: MINIMALLY IMPACTED FRACTURE THROUGH THE RIGHT SURGICAL NECK OF THE HUMERUS WITHOUT SIGNIFICANT CHANGE SINCE THE OCTOBER 28, 2018 RADIOGRAPH.
--- NOTE | 2018-10-31 19:09 | PN ---
Hospitalist Progress Note Date of Service: 10/31/18 Attending Assessment and Plan I reviewed the subjective and objective plans of residents note and agree with the findings of which I supervised 83 F independent at baseline with minimal PMH presented several days ago with R humeral fracture, d/c from ED to home and struggled with pain control and failure to thrive, brought in altered found to have hypONa #HypONa: Resolving with improved PO intake -Mixed urine studies, U Sodium > 20 and Osms relatively normal, consider tramadol as inciting along with poor PO -DC tramadol -Continue PO intake #R humeral frxr, minimally discplaced -Working with PT to depend on placemet #DVT:Lovenox #Code: Full
[2018-10-31] MEDS: Enoxaparin(*) 40 MG/0.4 ML SYR SUBCUT SCH (21:03)
[2018-10-31] MEDS ORDERED: Bisacodyl SUPP* 10 MG SUPP PR ONE (23:46)
--- NOTE | 2018-11-01 07:10 | PN ---
Progress Note - Progress Note Date of Service: 11/01/18 Note: Seen and examined. Pt lying in bed complaining of cold. Up for most of night to go to bathroom after suppository. states shoulder feels better Temp Pulse Resp BP Pulse Ox 98.1 F 73 16 130/69 93 11/01/18 03:15 11/01/18 03:15 11/01/18 03:15 11/01/18 03:15 11/01/18 03:15 NAD. pleasant, cooperative, conversant. R shoulder. sling in place. skin intact. SILT grossly. able to flex/ext digits. A/P 83 yo with R prox hum fracture repeat images show no significant displacement will continue to treat conservatively in sling. needs to f/u 2 weeks from discharge.
[2018-11-01] MEDS: Multivitamins/Minerals TAB PO SCH (08:10)
[2018-11-01] MEDS: Acetaminophen TAB* 325 MG PO PRN (08:10)
[2018-11-01] MEDS: CMC: OMEGA-3 FATTY ACIDS (NF) 1,000 MG CAP PO SCH (08:10)
--- NOTE | 2018-11-01 08:51 | PN ---
Hospitalist Progress Note Date of Service: 11/01/18 Attending Assessment and Plan I reviewed the subjective and objective plans of residents note and agree with the findings of which I supervised 83 F independent at baseline with minimal PMH presented several days ago with R humeral fracture, d/c from ED to home and struggled with pain control and failure to thrive, brought in altered found to have hypONa #HypONa: Resolving with improved PO intake -Mixed urine studies, U Sodium > 20 and Osms relatively normal, consider tramadol as inciting along with poor PO -DC tramadol -Continue PO intake #R humeral frxr, minimally discplaced -Working with PT to depend on placemet #DVT:Lovenox #Dispo: Home today with VNS #Code: Full
--- NOTE | 2018-11-01 09:16 | PN ---
Subjective Date of Service: 11/01/18 Interval History: She is well overnight, no more confusion, eats and drinks well. She needed gait belt for ambulation during physiotherapy assessment. However patient and her son requested to go home as per window caser. Objective Active Medications: Acetaminophen (Tylenol Tab*) 650 mg PO Q6H PRN PRN Reason: FEVER/PAIN Last Admin: 11/01/18 08:10 Dose: 650 mg Enoxaparin Sodium (Lovenox(*)) 40 mg SUBCUT Q24H CIRO Last Admin: 10/31/18 21:03 Dose: 40 mg Fish Oil (Fish Oil (Nf)) 1,000 mg PO DAILY [facility] Last Admin: 11/01/18 08:10 Dose: Not Given Ibuprofen (Motrin Tab*) 600 mg PO Q8H PRN PRN Reason: Pain- Moderate Last Admin: 10/31/18 21:02 Dose: 600 mg Multivitamins/Minerals (Theragran/Minerals Tab*) 1 tab PO DAILY [facility] Last Admin: 11/01/18 08:10 Dose: Not Given Ondansetron HCl (Zofran Inj*) 4 mg IV Q6H PRN PRN Reason: NAUSEA Last Admin: 10/30/18 13:20 Dose: 4 mg Vital Signs - 8 hr 11/01/18 11/01/18 03:15 07:15 Temperature 98.1 F 98.3 F Pulse Rate 73 70 Respiratory 16 16 Rate Blood Pressure 130/69 107/62 (mmHg) O2 Sat by Pulse 93 96 Oximetry Oxygen Devices in Use Now: None Exam: Well, alert, oriented Heart: normal S1, S2, no murmur Lung: clear Abdomen: soft, non tender Result Diagrams: 10/31/18 06:12 11/01/18 09:32 Assess/Plan/Problems-Billing Assessment: Ms. Leon is a 83 years old lady with background of MN, valvular disease, ICD, oophrectomy&hysterectomy, appendectomy, admitted for altered mental status in the setting of recent nondisplaced humeral fracture and poor oral intake. She presented with electrolyte disturbance (low Na, low Mg), which was resolved after stopping tramadol and replacing. - Patient Problems (1) Altered mental status Current Visit: Yes Status: Acute Code(s): R41.82 - ALTERED MENTAL STATUS, UNSPECIFIED SNOMED Code(s): 337811036 Comment: Due to combination effect of tramadol and electrolyte disturbances. Resolved after increased oral intake. (2) Hyponatremia Current Visit: Yes Status: Acute Code(s): E87.1 - HYPO-OSMOLALITY AND HYPONATREMIA SNOMED Code(s): 11253192 Comment: Likely due to poor oral intake and tramadol use. Resolving after giving 1L, sodium back to 131 today (3) Hypomagnesemia Current Visit: Yes Status: Acute Code(s): E83.42 - HYPOMAGNESEMIA SNOMED Code(s): 411875143 Comment: Due to poor oral intake, resolving with Mg tab. 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 (6) Constipation Current Visit: Yes Status: Acute Code(s): K59.00 - CONSTIPATION, UNSPECIFIED SNOMED Code(s): 81800019 Comment: No bowel movement for days, started colace for short term Status and Disposition: Patient will be dishcarged today Attestation Documenting Resident: Jenny Huber Supervising Physician: Rhiannon Babin Attestation: This service has been performed in part by a resident under the direction of a teaching physician.I, Rhiannon Babin, performed the service, or was physically present during the critical, or leary portions of the service, furnished by the resident. I participated in the management of the patient.
[2018-11-01] MEDS ORDERED: Docusate CAP* 100 MG PO SCH (10:00)
[2018-11-01 10:32] LABS: BUN/Creatinine Ratio 13.3 (8-20); EGFR African American 115.2 (>60); EGFR Non-African American 95.2 (>60); Potassium 4.2 mmol/L (3.5-5.0)
[2018-11-01 11:36] VITALS: BP 122/60
--- NOTE | 2018-11-01 13:53 | DS ---
CC: Dr. Warner Lyon DISCHARGE SUMMARY: DATE OF ADMISSION: 10/30/18 DATE OF DISCHARGE: 11/01/18 PRIMARY CARE PROVIDER: Dr. Warner Lyon. DISPOSITION AT THE TIME OF DISCHARGE: Stable to be discharged to home, the patient was offered short-term rehabilitation, although the patient and her son declined against the recommendation of Physical Therapy. PRIMARY DIAGNOSES: 1. Hyponatremia. 2. Altered mental status. 3. Right humeral fracture. SECONDARY DIAGNOSES: 1. History of valvular heart disease. 2. Distant history of coronary artery disease. MEDICATIONS AT THE TIME OF DISCHARGE: 1. Docusate 100 mg p.o. daily p.r.n. 2. Tylenol 650 mg p.o. q.6 hours p.r.n. for pain. 3. Ibuprofen 600 mg p.o. t.i.d. for pain. 4. [place]-3 fatty acids 1 cap daily. 5. Multivitamin 1 tab daily. Changes to medications on this hospitalization include the discontinuation of tramadol and the addition of docusate. HISTORY OF PRESENT ILLNESS AND HOSPITAL COURSE: An 83-year-old female with past medical history of distant CAD, valvular heart disease, who suffered a mechanical fall prior to admission with right recent humeral nondisplaced fracture. The patient had been seen in the emergency room for her right humeral fracture and elected to be discharged with conservative Orthopedic followup. Upon arriving to home, she was prescribed tramadol and was taking this for pain, which caused nausea, vomiting, and altered mental status. She also had poor p.o. intake and signs and symptoms of failure to thrive. She represented to the emergency room confused and was found to have hyponatremia to 120. She was admitted to the hospitalist service for further evaluation. Treatment and her hospital course by problem is as follows: 1. Altered mental status. This is thought to be secondary to hyponatremia, which was thought to be secondary to hypovolemia versus med reaction. The patient was given IV fluids and mental status improved significantly. On hospital day 2, she was feeding herself, ambulating, and returned to baseline mental status function although still seemed frail and unsteady according to Physical Therapy. 2. Right recent humeral fracture. Continued conservative therapy with pain control with acetaminophen and NSAID with good effect. She has followup with Dr. Victor Manuel Enriquez, who will follow this patient with repeat x-ray and continue monitoring in 3 to 4 weeks. Furthermore, visiting nurses as well as Meals on Wheels will be offered to this patient during this time. 3. Hyponatremia. This is thought to be secondary to hypovolemia, although urine sodium on admission was greater than 20. It is possible that this was a med reaction altogether secondary to opioids and produced early SIADH. Nonetheless, symptoms improved with discontinuation of tramadol and rehydration and the patient with her baseline mental status function. On day of discharge, sodium is 131 from 120. 4. Functional status. The patient is ambulating with cane on day of discharge , although still seems unsteady on feet according to PT, who recommended short- term rehab. The patient and her son declined short-term rehab and elected for visiting nurses, although they are aware this is against the advice of PT. Counseled the patient to return if continued failure to thrive symptoms, she may need to be reevaluated for subacute rehab, which she adamantly declines on this hospitalization. 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 Shoulder x-ray: Right shoulder shows minimally impacted fracture to the right surgical neck of the humerus without significant change from 10/28/18 x-ray. Chest x-ray on 10/30/18 shows no acute cardiopulmonary disease. 10/30/18, brain CT shows no intracranial pathology. CONSULTANTS DURING THIS HOSPITALIZATION: Included Orthopedics who recommended conservative therapy. ITEMS TO FOLLOW UP STATUS POST DISCHARGE: 1. Hyponatremia. Follow up with primary care, is recommended to repeat BMP to ensure normal levels have been maintained, the patient is with normal mental status and sodium on the day of discharge is 131. We anticipate this will continue to improve if p.o. intake and discontinuation of tramadol remains. 2. Right humeral neck fracture. The patient will need a Ortho followup and conservative management with sling and followup imaging within 2 to 4 weeks as discussed by Dr. Butt's team. She will be seen by Dr. Pollock in outpatient to ensure the patient has access and schedule to appointment. This was discussed with son on discharge. On the day of discharge, the patient is ambulating and voiding freely. Physical exam is unremarkable with the exception of right humeral fracture. Vital signs are stable. Labs are reviewed and only notable for sodium of 131. The patient and family are counseled of when to return to the emergency room and all questions are answered. TIME SPENT: 45 minutes was spent on planning of this discharge, with over half of that spent directly at the bedside with the patient, providing direct patient care. If there are any questions about the care of this patient during this hospitalization, please do not hesitate to reach out to hospitalist team. [id number]/CPS #: [id number] DAPHNIE
== END 2018-11-01 13:50 | disposition home or self-care (01) ==
LOC: ED 08:26 → MED 11:32
PROVIDERS: ADMIT Hospitalist; ATTEND Internal Medicine
DX: E87.1 Hypo-osmolality and hyponatremia (principal); R41.82 Altered mental status, unspecified; S42.211D Unspecified displaced fracture of surgical neck of right humerus, subsequent encounter for fracture with routine healing; E83.42 Hypomagnesemia; W19.XXXD Unspecified fall, subsequent encounter; I48.0 Paroxysmal atrial fibrillation; R42 Dizziness and giddiness; M81.0 Age-related osteoporosis without current pathological fracture; Z79.899 Other long term (current) drug therapy; I25.10 Atherosclerotic heart disease of native coronary artery without angina pectoris; Z86.79 Personal history of other diseases of the circulatory system; K59.00 Constipation, unspecified; I25.2 Old myocardial infarction; Z95.0 Presence of cardiac pacemaker; F32.9 Major depressive disorder, single episode, unspecified; Z95.810 Presence of automatic (implantable) cardiac defibrillator; Z85.810 Personal history of malignant neoplasm of tongue; R94.31 Abnormal electrocardiogram [ECG] [EKG]; I45.10 Unspecified right bundle-branch block; R25.1 Tremor, unspecified
CPT/HCPCS: 36415; 70450; 71045; 80048; 80053; 80307; 80320; 81003; 81015; 82533; 82550; 82570; 83605; 83735; 83935; 84300; 84443; 84478; 84484; 85025; 85610; 87641; 93005; 96361; 96365; 96372; 96375; 99285; A9270-GY; G0378; G0480; G8978-GP-CI; G8978-GP-CM; G8979-GP-CH; G8979-GP-CK; J1650; J2405; J3475

== ENCOUNTER 2022-09-22 09:48 | Inpatient (IN) ==
[2022-09-22 10:58] LABS: ABS Eosinophils 0.1 10^3/uL (0.0-0.5); ABS Lymphocytes 0.6 10^3/uL (1.0-4.8); ABS Monocytes 0.6 10^3/uL (0.0-0.9); ABS Neutrophils 7.1 10^3/uL (1.5-7.6); ABS Nucleated RBC 0.01 10^3/ul; Eosinophil % 1.6 %; Hematocrit 32.7 % (35-45); Hemoglobin 11.2 g/dL (11.5-14.3); Lymphocyte % 6.9 %; Mean Corpuscular Hemoglobin 31.4 pg (27-33); Mean Corpuscular Hgb Conc 34.4 g/dL (31-36); Mean Corpuscular Volume 91.5 fL (80-97); Mean Platelet Volume 10.9 fL (7.5-11.2); Nucleated Red Blood Cells % 0.1 /100 WBC (0.0-0.4); Platelet Count 155 10^3/uL (150-450); Red Blood Count 3.58 10^6/uL (3.63-4.92); White Blood Count 8.5 10^3/uL (3.8-11.8)
[2022-09-22 11:08] LABS: INR 1.24 (0.88-1.18)
[2022-09-22 11:32] LABS: Albumin 3.6 g/dL (3.2-5.2); Albumin/Globulin Ratio 1.5 (1-3); Calcium 7.9 mg/dL (8.6-10.3); Creatinine, Serum 0.56 mg/dL (0.51-0.95); Globulin 2.4 g/dL (2-4); Potassium 3.4 mmol/L (3.5-5.0); Total Bilirubin 0.8 mg/dL (0.2-1.0); eGFR CKD-EPI 87.7 (>60)
[2022-09-22 12:21] LABS: High Sensitivity Troponin 1 Hr 5 pg/mL (<15)
[2022-09-22] MEDS: Heparin 5000 UNITS/ML 1 mL VIAL SUBCUT SCH ×2 (13:33→22:15)
[2022-09-22 14:25] LABS: Urine Appearance Cloudy; Urine Bilirubin Negative (Negative); Urine Blood Negative (Negative); Urine Color Yellow; Urine Glucose Negative (Negative); Urine Ketones Negative (Negative); Urine Nitrite Positive (Negative); Urine Protein Negative (Negative); Urine Urobilinogen Negative (Negative)
[2022-09-22 14:48] LABS: Magnesium 1.7 mg/dL (1.9-2.7)
[2022-09-22 15:04] LABS: Urine Bacteria 1+ (Absent); Urine Red Blood Cell Absent (Absent); Urine White Blood Cell Trace(0-5/hpf) (Absent)
[2022-09-22] MEDS ORDERED: Potassium Chloride IV 40 MEQ in Lactated Ringers 1000 ml BAG 1,000 ML IVPB ONE (15:35)
[2022-09-22] MEDS ORDERED: Magnesium Sulfate IV 3 GM in NS 0.9% 100 ml BAG 100 ML IVPB ONE (15:35)
[2022-09-22] MEDS: Potassium Chlor 20 meq TAB.ER PO ONE ×2 (16:28→16:29)
[2022-09-22] MEDS ORDERED: cefTRIAXone 1 gm/50 mL D5W 1 GM/50 ML BAG IV SCH (23:15)
[2022-09-22] MEDS ORDERED: CEFTRIAXONE ADVAN IVPB SCH (23:30)
[2022-09-22] MEDS ORDERED: NS 0.9% IVPB SCH (23:30)
[2022-09-23 06:46] LABS: ABS Basophils 0.1 10^3/uL (0.0-0.1); ABS Eosinophils 0.1 10^3/uL (0.0-0.5); ABS Lymphocytes 0.3 10^3/uL (1.0-4.8); ABS Monocytes 1.1 10^3/uL (0.0-0.9); ABS Neutrophils 8.1 10^3/uL (1.5-7.6); Hematocrit 33.7 % (35-45); Hemoglobin 11.6 g/dL (11.5-14.3); Lymphocyte % 3.5 %; Mean Corpuscular Hemoglobin 31.8 pg (27-33); Mean Corpuscular Hgb Conc 34.4 g/dL (31-36); Mean Corpuscular Volume 92.6 fL (80-97); Mean Platelet Volume 10.5 fL (7.5-11.2); Platelet Count 135 10^3/uL (150-450); Red Blood Count 3.63 10^6/uL (3.63-4.92); White Blood Count 9.7 10^3/uL (3.8-11.8)
[2022-09-23 06:48] LABS: INR 1.24 (0.88-1.18)
[2022-09-23 07:17] LABS: Calcium 8.4 mg/dL (8.6-10.3); Creatinine, Serum 0.56 mg/dL (0.51-0.95); Potassium 4.1 mmol/L (3.5-5.0); eGFR CKD-EPI 87.7 (>60)
[2022-09-23] MEDS ORDERED: cefTRIAXone ADVAN VIAL 1 GM in NS 0.9% 50 ML 50 ML IVPB SCH ×2 (08:53→21:00)
[2022-09-23] MEDS ORDERED: Morphine 2 MG/ML SYRINGE IV PRN (08:58)
[2022-09-23] MEDS ORDERED: Lactated Ringers 1000 ml BAG 1,000 ML IV ONE (08:59)
[2022-09-23] MEDS ORDERED: Morphine 4 MG/ML VIAL (1 ml) IV PRN (08:59)
[2022-09-23] MEDS ORDERED: ROPIVACAINE 5 MG/ML 30 ML BTL (0.5%) ONE (12:30)
[2022-09-23] MEDS ORDERED: ceFAZolin 2 GM in NS PREMIX 2 GM/100 ML BAG IVPB ONE (12:32)
[2022-09-23] MEDS ORDERED: Rocuronium 50 mg VIAL 10 mg/ml 5 ml VIAL (50 mg) ONE ×2 (12:42→14:17)
[2022-09-23] MEDS ORDERED: Ondansetron 4 mg VIAL 2 MG/ML 2 ml VIAL ONE (12:43)
[2022-09-23] MEDS ORDERED: Phenylephrine IV 10 MG/ML 1 ml VIAL ONE (12:43)
[2022-09-23] MEDS ORDERED: fentaNYL 250 mcg/5 ml 50 MCG/ML 5 ml VIAL (250 MCG) ONE (12:43)
[2022-09-23] MEDS ORDERED: Propofol 10 MG/ML 20 ML BTL ONE (12:43)
[2022-09-23] MEDS ORDERED: Lidocaine 2% PF 5 ML VIAL ONE (12:43)
[2022-09-23] MEDS ORDERED: Dexamethasone IV 4 MG/ML VIAL 1 ml VIAL ONE (14:35)
[2022-09-23] MEDS ORDERED: fentaNYL 100 mcg/2 ml 50 MCG/ML VIAL IV PRN (16:38)
[2022-09-23] MEDS ORDERED: Naloxone 0.4 mg VIAL 0.4 mg/ml 1 ml VIAL IV PRN (16:38)
[2022-09-23] MEDS ORDERED: Dextran 70/Hypromellose Tears Eye Drops 15 ml BTL (for Artificials Tears) LEFT EYE PRN (19:23)
[2022-09-23] MEDS: ceFAZolin 1 GM in Dextrose 1 GM/50 ML BAG IVPB SCH (22:29)
[2022-09-24] MEDS: ceFAZolin 1 GM in Dextrose 1 GM/50 ML BAG IVPB SCH ×2 (06:21→15:36)
[2022-09-24 07:32] LABS: ABS Eosinophils 0.1 10^3/uL (0.0-0.5); ABS Lymphocytes 0.5 10^3/uL (1.0-4.8); ABS Monocytes 1.6 10^3/uL (0.0-0.9); ABS Neutrophils 7.5 10^3/uL (1.5-7.6); Eosinophil % 1.2 %; Hematocrit 28.2 % (35-45); Hemoglobin 9.8 g/dL (11.5-14.3); Lymphocyte % 5.5 %; Mean Corpuscular Hemoglobin 32.2 pg (27-33); Mean Corpuscular Hgb Conc 34.7 g/dL (31-36); Mean Corpuscular Volume 92.7 fL (80-97); Mean Platelet Volume 10.1 fL (7.5-11.2); Platelet Count 97 10^3/uL (150-450); Red Blood Count 3.05 10^6/uL (3.63-4.92); White Blood Count 9.8 10^3/uL (3.8-11.8)
[2022-09-24 07:41] LABS: Creatinine, Serum 0.75 mg/dL (0.51-0.95); Magnesium 1.9 mg/dL (1.9-2.7); eGFR CKD-EPI 76.5 (>60)
[2022-09-24] MEDS ORDERED: Psyllium PAK PO PRN (12:06)
[2022-09-24] MEDS: Enoxaparin 40 MG/0.4 ML SYR SUBCUT SCH (12:24)
[2022-09-24] MEDS ORDERED: Senna TAB 8.6 mg TAB PO PRN (14:05)
[2022-09-24] MEDS ORDERED: Magnesium Hydroxide LIQ 30 ML UDC PO PRN (14:05)
[2022-09-24] MEDS ORDERED: Polyethylene Glycol 3350 17 GM PACKET PO PRN (14:05)
[2022-09-24] MEDS ORDERED: Magnesium Hydroxide LIQ 30 ML UDC PO SCH (21:00)
[2022-09-24] MEDS ORDERED: Polyethylene Glycol 3350 17 GM PACKET PO SCH (21:00)
[2022-09-25] MEDS ORDERED: Psyllium PAK PO SCH (09:00)
[2022-09-25 10:13] VITALS: BP 106/70
[2022-09-25] MEDS: Enoxaparin 40 MG/0.4 ML SYR SUBCUT SCH (14:18)
[2022-09-25] MEDS ORDERED: Senna TAB 8.6 mg TAB PO SCH (21:00)
== END 2022-09-25 14:31 | DRG 522 ==
LOC: ED 09:48 → EDHOLD 12:10 → SUATTDRO 12:10 → EDHOLD 20:32 → SSU 21:18
PROVIDERS: ADMIT Hospitalist; ATTEND Internal Medicine